=== PATIENT | male | born 1940 | race African-American/Black ===

== ENCOUNTER 2019-10-25 14:11 | Inpatient (IN) | payer MEDICARE ==
[~2019-10-25 14:11] MED LIST: Dextrose 50% Abboject 50 ML SYRINGE ONE
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
[2019-10-25 15:35] LABS: Lactic Acid 2.1 mmol/L (0.5-2.2)
[2019-10-25 15:39] LABS: Acetaminophen Less than 6.0 mcg/mL (10.0-30.0); Alcohol Less than 10 mg/dL (Less than 10); Salicylate Less than 8.0 mg/dL (15.0-30.0)
[2019-10-25] MEDS ORDERED: cefTRIAXone\\ROCEPHIN 1 GM VIAL ONE (16:20)
[2019-10-25 19:19] LABS: CKMB 119.1 ng/mL (0-6.6)
[2019-10-25] MEDS ORDERED: Ondansetron ODT 4 MG TAB SL PRN (19:39)
[2019-10-25] MEDS ORDERED: Ondansetron PF 4 MG/2 ML Vial IVP PRN (19:39)
[2019-10-25] MEDS ORDERED: Sodium Chloride 0.9% 1,000 ML IV SCH (19:39)
[2019-10-25] MEDS ORDERED: Acetaminophen 325 MG TAB PO PRN ×2 (19:39→19:56)
[2019-10-25 19:53] LABS: CKMB 115.9 ng/mL (0-6.6)
[2019-10-25] MEDS ORDERED: Ondansetron ODT 4 MG TAB PO PRN (19:56)
[2019-10-25] MEDS: Lactated Ringer's 1,000 ML IV SCH (20:02)
[2019-10-25 20:32] LABS: Free T4 (Free Thyroxine) 1.03 ng/dL (0.70-1.48)
[2019-10-26] MEDS: Lactated Ringer's 1,000 ML IV SCH ×4 (01:33→18:10)
[2019-10-26 05:14] LABS: Anion Gap 12 mmol/L (10-20); BUN (Urea Nitrogen) 42 mg/dL (8.4-25.7); Calc. Creatinine Clearance 31 mL/min (70-130); Calcium 7.9 mg/dL (7.8-10.44); Carbon Dioxide 22 mmol/L (23-31); Chloride 110 mmol/L (98-107); Estimated GFR-MDRD 58; Glucose 99 mg/dL (83-110); Potassium 4.2 mmol/L (3.5-5.1); Sodium 140 mmol/L (136-145)
[2019-10-26 05:15] LABS: CKMB 61.9 ng/mL (0-6.6); Critical Call CKMB RESULT DECREASING
[2019-10-26 05:20] LABS: #Lymphocytes 0.5 thou/uL (1.20-3.40); #Monocytes 1.2 thou/uL (0.11-0.59); #Neutrophils 10.5 thou/uL (1.40-6.50); %Basophils 0.1 % (0.0-1.0); %Eosinophils 0.1 % (0.0-10.0); %Lymphocytes 3.7 % (21.0-51.0); %Monocytes 9.8 % (0.0-10.0); %Neutrophils 86.3 % (42.0-75.0); Hemoglobin 10.4 g/dL (14.0-18.0); Mean Corpuscular HGB CONC 32.4 g/dL (32.0-36.0); Mean Corpuscular Hemoglobin 29.6 pg (27.0-31.0); Mean Corpuscular Volume 91.5 fL (78.0-98.0); Mean Platelet Volume 9.6 fL (7.4-10.4); Platelet Count 81 thou/uL (130-400); Platelet Morphology Comment Appears Decreased; RBC Distribution Width 12.2 % (11.5-14.5); White Blood Cell (WBC) Count 12.1 thou/uL (4.8-10.8)
[2019-10-26 05:28] LABS: Syphilis Antibody Nonreactive (Nonreactive); Syphilis Antibody Index 0.09 S/CO (<1.00 Non-Reactive)
[2019-10-26 05:29] LABS: HBCM Index 0.04 S/CO (0-0.79); HBSAB Concentration 2.26 mIU/mL; HBSAg Index 0.22 S/CO (0-0.99); Hep A IgM AB Non-Reactive (NonReactive); Hep A IgM S/CO 0.11 S/CO (0-0.79); Hep B Surf AB Non-Reactive (NonReactive); Hep B Surf Ag Non-Reactive S/CO (NonReactive); Hepatitis B Core IgM Abs Non-Reactive (NonReactive)
--- NOTE | 2019-10-26 05:37 | PDOC.FM ---
- Subjective Subjective: Patient doing well this morning. A&O x1. Denies any cp, sob, abd pain at this time. - Objective Vital Signs & Weight: Vital Signs (12 hours) Temp Pulse Resp BP BP Pulse Ox 10/26/19 04:00 98.4 F 84 20 150/84 H 97 10/25/19 23:59 99.4 F 94 18 150/70 H 95 10/25/19 19:35 99.4 F 91 16 145/74 H 96 Weight Weight 51.029 kg Result Diagrams: 10/26/19 04:24 10/26/19 04:24 Phys Exam - Physical Examination Constitutional: NAD HEENT: moist MMs, sclera anicteric Neck: supple, full ROM Respiratory: no wheezing, clear to auscultation bilateral Cardiovascular: RRR, no significant murmur Gastrointestinal: soft, non-tender slender abd Musculoskeletal: no edema, pulses present Neurological: non-focal, moves all 4 limbs Deviation from normal: A&O x1 Skin: normal turgor Deviation from normal: skin breakdown on scrotum Dx/Plan (1) Rhabdomyolysis Code(s): M62.82 - RHABDOMYOLYSIS Status: Acute (2) Elevated troponin Code(s): R79.89 - OTHER SPECIFIED ABNORMAL FINDINGS OF BLOOD CHEMISTRY Status : Acute (3) Hyperthyroidism Code(s): E05.90 - THYROTOXICOSIS, UNSP WITHOUT THYROTOXIC CRISIS OR STORM Status: Acute (4) Elevated AST (SGOT) Code(s): R74.0 - NONSPEC ELEV OF LEVELS OF TRANSAMNS & LACTIC ACID DEHYDRGNSE Status: Acute (5) Leukocytosis Code(s): D72.829 - ELEVATED WHITE BLOOD CELL COUNT, UNSPECIFIED Status: Acute (6) Asthma Code(s): J45.909 - UNSPECIFIED ASTHMA, UNCOMPLICATED Status: Acute (7) ALLEN (acute kidney injury) Code(s): N17.9 - ACUTE KIDNEY FAILURE, UNSPECIFIED Status: Acute - Plan Plan: Patient is a 79M with unknown medical hx that is admitted for rhabdomyolysis, ALLEN vs CKD, hypothermia, and social discord #Rhabdo -found down in [place], unknown time duration -CK 4642 > 9070 -CK-MB 87.2 > 61.9 -lactic 2.1 -Received 3L NS throughout the various ER stays today -will continue IVF hydration and trend CK/CK-MB to monitor improvement #ALLEN vs CKD -Creatinine 2.16 > 1.43 with fluid -uncertain of baseline -will continue to monitor with fluids #Elevated troponins -trop 0.096>0.189>0.17 -patient denies chest pain -likely due to rhabdo/being found down/demand -will continue to monitor on telemetry #Leukocytosis -WBC 20>12.1, likely reactive due to patient's recent time spent outside/rhabdo/ hypothermia -will continue to monitor #Elevated AST -no known drinking hx, though uncertain hx -RPR neg -Hepatitis panel and HIV pending #Elevated TSH -TSH 5.68 -no symptoms of hyperthyroidism -free T3 low at 1.54, free T4 nml -likely subclinical hypothyroidism #Hypothermia, resolved -temperature in ED 98.4F -will continue to monitor on telemetry #Social Discord/Possible dementia -patient A&O x1 -this has occurred one time previously 1 month ago -son states that it will be difficult for anyone from the family to come see patient in the hospital -family seems to be unaware of patient's medical hx, medications -UDS neg -Brain CT neg -CM consult, appreciate recs -24hr sitter -will continue to discuss patient with family, and will call [facility] in [place], [place] today for records #Lactic Acidosis, resolved -lactic 2.1 -gap closed today at 8 -fluids -continue to monitor #Deconditioning #Starvation Ketosis -elevated BHB -patient appears very slender; unsure what patient has eaten or where patient has stayed throughout the last several days since going missing -dietitian consult, appreciate recs -wound care consulted #Asthma -son states patient has reported asthma -will add duonebs prn and monitor respiratory status #Possible UTI -patient denies urinary symptoms -UA: + protein, blood, 2+ bacteria though squamous cells present so likely not clean catch -received 1g rocephin in ED -urine cx pending, will consider abx therpy if urine cx + DVT ppx: SCD for high fall risk Dispo: inpatient for IVF hydration for rhabdo, cm/sw consult for social discord , polytechnic registrar for deconditioning Code: Full
[2019-10-26 05:41] LABS: CK (CPK) 9070 U/L (30-200)
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
[2019-10-26] MEDS ORDERED: FLU VACC TS2019-20(65YR UP)/PF 180 MCG/0.5 ML SYRINGE IM ONE (21:00)
[2019-10-26] MEDS ORDERED: Prevnar 13-Val Conj/PF 0.5 ML SYRINGE IM ONE (21:00)
[2019-10-27] MEDS: Lactated Ringer's 1,000 ML IV SCH ×5 (00:59→22:55)
[2019-10-27 05:18] LABS: #Lymphocytes 0.8 thou/uL (1.20-3.40); %Basophils 0.4 % (0.0-1.0); %Eosinophils 0.4 % (0.0-10.0); %Lymphocytes 9.9 % (21.0-51.0); %Monocytes 12.3 % (0.0-10.0); %Neutrophils 76.9 % (42.0-75.0); Hemoglobin 9.9 g/dL (14.0-18.0); Mean Corpuscular HGB CONC 32.5 g/dL (32.0-36.0); Mean Corpuscular Hemoglobin 30.3 pg (27.0-31.0); Mean Corpuscular Volume 93.2 fL (78.0-98.0); Mean Platelet Volume 9.3 fL (7.4-10.4); Platelet Count 79 thou/uL (130-400); RBC Distribution Width 12.2 % (11.5-14.5); Red Blood Cell (RBC) Count 3.26 mill/uL (4.70-6.10); White Blood Cell (WBC) Count 7.8 thou/uL (4.8-10.8)
[2019-10-27 05:37] LABS: Anion Gap 6 mmol/L (10-20); BUN (Urea Nitrogen) 21 mg/dL (8.4-25.7); Calc. Creatinine Clearance 59 mL/min (70-130); Calcium 7.8 mg/dL (7.8-10.44); Carbon Dioxide 29 mmol/L (23-31); Chloride 109 mmol/L (98-107); Estimated GFR-MDRD Greater than 90; Glucose 112 mg/dL (83-110); Potassium 3.6 mmol/L (3.5-5.1); Sodium 140 mmol/L (136-145)
[2019-10-27 05:39] LABS: CKMB 20.7 ng/mL (0-6.6); Critical Call CKMB RESULT DECREASING
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
[2019-10-27 05:50] LABS: HIV (1/2) Antibody/Antigen Non-Reactive (NonReactive); HIV 1/2 INDEX 0.05 S/CO (<1.00)
[2019-10-27 05:54] LABS: CK (CPK) 6083 U/L (30-200)
[2019-10-27] MEDS ORDERED: hydrALAZINE 20 MG/ML VIAL SLOW IVP PRN (10:19)
[2019-10-27] MEDS ORDERED: Amlodipine 10 MG TAB PO SCH (10:20)
[2019-10-27 10:33] LABS: Iron 53 ug/dL (65-175); Iron Binding Capacity, Total 215 mcg/dL (261-462)
[2019-10-27 10:54] LABS: Ferritin 248.06 ng/mL (22-322)
--- NOTE | 2019-10-27 11:37 | PRG ---
DATE OF SERVICE: 10/27/2019 Mr. Keith is sitting in bed quietly, in no distress. He is still confused and somewhat disoriented and likely has dementia. We will do mini-mental status exam on him later today. He has also been found to be anemic and we have instituted some iron studies. Job ID: [id number]
[2019-10-28] MEDS: Lactated Ringer's 1,000 ML IV SCH ×4 (04:49→22:21)
[2019-10-28 07:14] LABS: #Eosinphils 0.1 thou/uL (0.0-0.7); #Lymphocytes 0.7 thou/uL (1.20-3.40); #Neutrophils 5.8 thou/uL (1.40-6.50); %Basophils 0.4 % (0.0-1.0); %Eosinophils 1.8 % (0.0-10.0); %Lymphocytes 8.5 % (21.0-51.0); %Neutrophils 76.3 % (42.0-75.0); Hemoglobin 10.8 g/dL (14.0-18.0); Mean Corpuscular Hemoglobin 31.6 pg (27.0-31.0); Mean Corpuscular Volume 92.8 fL (78.0-98.0); Mean Platelet Volume 8.2 fL (7.4-10.4); Platelet Count 94 thou/uL (130-400); RBC Distribution Width 11.9 % (11.5-14.5); Red Blood Cell (RBC) Count 3.44 mill/uL (4.70-6.10); White Blood Cell (WBC) Count 7.6 thou/uL (4.8-10.8)
[2019-10-28 07:21] LABS: Anion Gap 9 mmol/L (10-20); BUN (Urea Nitrogen) 11 mg/dL (8.4-25.7); CK (CPK) 3025 U/L (30-200); Calc. Creatinine Clearance 66 mL/min (70-130); Calcium 7.9 mg/dL (7.8-10.44); Carbon Dioxide 30 mmol/L (23-31); Chloride 105 mmol/L (98-107); Estimated GFR-MDRD Greater than 90; Glucose 95 mg/dL (83-110); Potassium 3.5 mmol/L (3.5-5.1); Sodium 140 mmol/L (136-145)
[2019-10-28 07:29] LABS: CKMB 7.8 ng/mL (0-6.6)
[2019-10-28] MEDS ORDERED: Lactated Ringer's 1,000 ML IV SCH (07:30)
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
[2019-10-28] MEDS: Amlodipine 5 MG TAB PO SCH (11:05)
--- NOTE | 2019-10-28 11:18 | PRG ---
DATE OF SERVICE: 10/28/2019 I have discussed the case and read the note of Dr. Stefania Esparza, and agree with her assessment and plan. Mr. Keith is resting in bed, in no distress. He is still having episodes of intermittent confusion and last night appeared to have some problem with delirium. We are still attempting to perform a mini mental status exam to document his probable dementia. His CK continues to normalize. His ALLEN has improved with the beginning creatinine of 2.16. It is now 0.76. We will continue with fluids and monitoring. Job ID: [id number]
--- NOTE | 2019-10-28 12:07 | PQF ---
ANTONIETA HO NIKKI, MD *r [id number] [facility]-265 [id number] CLINICAL DOCUMENTATION IMPROVEMENT CLARIFICATION FORM: ICD-10 Updated PLEASE DO AN ADDENDUM TO THE PROGRESS NOTE WITH ANY DOCUMENTATION UPDATES OR ADDITIONS AND CARRY THROUGH TO DC SUMMARY. THANK YOU. DATE: 10/28/19 ATTN: Dr. Esparza Please exercise your independent, professional judgment in responding to the clarification form. Clinical indicators are provided on the bottom of this form for your review Please check appropriate box(s): [x] SIRS due to Non-infectious process: [x] Rhabdomyolysis [ ] With organ dysfunction [ ] Without organ dysfunction [ ] Other diagnosis [ ] Unable to determine In addition, please specify: Present on Admission (POA): [ ] Yes [ ] No [ ] Unable to determine For continuity of documentation, please document condition throughout progress notes and discharge summary. Thank You. CLINICAL INDICATORS - SIGNS / SYMPTOMS / LABS / RESULTS AND LOCATION IN MR Heart Rate >90/min--> HR 101 per 10/25 VS Respiratory Rate >22/min--> 10/25 RR 24 per VS AMS--> 10/25 Isaias: "A&O x1" Leukocytosis >12k or <4k--> 10/26 wbc 12.1 per lab 10/26 Isaias:" lactic acidosis" labs: 10/26 bun 42, creat 1.43, GFR 58--> 10/27 bun 21, creat 0.82, GFR >90 CK 9070 per 10/26 lab RISK FACTORS / RESULTS AND LOCATION IN MR "Rhabdomyolysis, ALLEN" 10/25 Isaias TREATMENT / RESULTS AND LOCATION IN MR IV Fluids--> 1L NS 10/25 to LR at 175 10/25-10/28/19--> LR at 75 10/28/19 per labs Daily labs 10/26 to date per orders (This form is maintained as a part of the permanent medical record) 2014 [employer]. All Rights Reserved Courtney Stark RN, BSN, CCDS [email or web address]
[2019-10-28 13:28] VITALS: BMI 19.6
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
[2019-10-28 18:42] LABS: CKMB 6.1 ng/mL (0-6.6)
[2019-10-29] MEDS: Lactated Ringer's 1,000 ML IV SCH ×4 (02:33→21:47)
[2019-10-29 05:27] LABS: CKMB 5.9 ng/mL (0-6.6)
[2019-10-29 05:28] LABS: Anion Gap 7 mmol/L (10-20); BUN (Urea Nitrogen) 15 mg/dL (8.4-25.7); CK (CPK) 1941 U/L (30-200); Calc. Creatinine Clearance 61 mL/min (70-130); Calcium 8.4 mg/dL (7.8-10.44); Carbon Dioxide 33 mmol/L (23-31); Chloride 101 mmol/L (98-107); Estimated GFR-MDRD Greater than 90; Glucose 86 mg/dL (83-110); Potassium 3.9 mmol/L (3.5-5.1); Sodium 137 mmol/L (136-145)
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
[2019-10-29] MEDS: Amlodipine 5 MG TAB PO SCH (09:28)
--- NOTE | 2019-10-29 11:28 | PRG ---
DATE OF SERVICE: 10/29/2019 Not surprisingly, Mr. Keith's MMSE was consistent with [id number]-[id number] dementia. We are still awaiting placement and have consulted case management. In the event, clinically, Mr. Keith though confused, is otherwise stable. Job ID: [id number]
[2019-10-29 19:09] LABS: Folate,Hemolysate 309.7 ng/mL (Not Estab.); Hematocrit 29.4 % (37.5-51.0); RBC Folate Test Component 1053 ng/mL (>498)
[2019-10-30 05:09] LABS: Anion Gap 10 mmol/L (10-20); BUN (Urea Nitrogen) 13 mg/dL (8.4-25.7); CK (CPK) 983 U/L (30-200); Calc. Creatinine Clearance 63 mL/min (70-130); Calcium 8.5 mg/dL (7.8-10.44); Carbon Dioxide 28 mmol/L (23-31); Chloride 105 mmol/L (98-107); Estimated GFR-MDRD Greater than 90; Glucose 93 mg/dL (83-110); Potassium 4.1 mmol/L (3.5-5.1); Sodium 139 mmol/L (136-145)
[2019-10-30 05:12] LABS: CKMB 4.9 ng/mL (0-6.6)
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
[2019-10-30] MEDS: Lactated Ringer's 1,000 ML IV SCH (08:10)
[2019-10-30] MEDS ORDERED: Amlodipine 10 MG TAB PO SCH (09:00)
--- NOTE | 2019-10-30 11:23 | PRG ---
DATE OF SERVICE: 10/30/2019 I have examined Mr. Keith and discussed the case with Dr. Stefania Esparza. I agree with her assessment and plan. Job ID: [id number]
[2019-10-30 16:35] VITALS: BP 137/82; TEMP 98.4
--- NOTE | 2019-11-02 05:36 | PQF ---
[employer] Crystal Reports [employer] ANTONIETA Ewing ELI BLACK [id number] CLINICAL DOCUMENTATION CLARIFICATION FORM: POST DISCHARGE Addendum to original discharge summary date: ____ Late entry note date: __ DATE: 11/02/2019 ATTN:ELI BLACK Please exercise your independent, professional judgment in responding to the clarification form. Clinical indicators are provided on the bottom of this form for your review Please check appropriate box(s): AMI TYPE: [ ] Acute Coronary Syndrome (ACS) without Acute WV meaning Unstable Angina [ ] NSTEMI (WV type I) [ ] NSTEMI due to Demand Ischemia (AMI Type II) [ ] Demand Ischemia without WV [ ] STEMI (please also specify site and arterysee below) If STEMI, SITE:[ ] Anterior [ ] Apical [ ] Lateral [ ] Inferior [ ] Posterior [ ] Q Wave [ ] Septal [ ] Unable to Determine SPECIFIC ARTERY (Based on site) [ ] Left Main Coronary[ ] Diagonal [ ] Left Anterior Descending[ ] Oblique Marginal [ ] Right Coronary Artery[ ] Unable to Determine [ ] Left Circumflex ONSET OF INFARCTION: [ ] Onset Less than 4 weeks of admission [ ] Onset Greater than 4 weeks of admission [ ] Unable to determine DUE TO (if applicable): [ ] Stent occlusion [ ] In-Stent stenosis [ ] Occlusion of coronary bypass graft [ ] Complication of PCI [ ] Underlying CAD [ ] Other [ ] Other diagnosis [ ] Unable to determine In addition, please specify: Present on Admission (POA): [ ] Yes [ ] No [ ] Unable to determine CLINICAL INDICATORS - SIGNS / SYMPTOMS / LABS Elevated 0.189 on 10/25 & 0.123 on 10/28 - Documented in Laboratory Elevated CK MB 119.1 on 10/25 and 7.8 on 10/28 - Documented in Laboratory elevated troponin likely due to rhabdo/being found down/demand - Documented in H &P on 10/25 by Isaias Aguiar Patient has continued to decrease with fluids and recovery - Documented in Family Medicine PNs on 10/30 by Isaias Aguiar Patient continue to deny chest pain - Documented in Family Medicine PNs on by Isaias Aguiar RISKS: Rhabdomyolysis ALLEN HTN TREATMENTS: Will continue monitoring on telemetry - Documented in H&P on 10/25 by Isaias Aguiar (This form is maintained as a part of the permanent medical record) 2014 [employer]. All Rights Reserved Brea [email or web address] [not provided] MTDD
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
== END 2019-10-30 16:52 | disposition home or self-care (01) | DRG 683 ==
LOC: ERS 14:11 → 2NO 19:48
PROVIDERS: ADMIT Family Medicine; ATTEND Family Medicine
DX: N17.9 Acute kidney failure, unspecified (principal); M62.82 Rhabdomyolysis; E87.2 Acidosis; R65.10 Systemic inflammatory response syndrome (SIRS) of non-infectious origin without acute organ dysfunction; Z85.46 Personal history of malignant neoplasm of prostate; E05.90 Thyrotoxicosis, unspecified without thyrotoxic crisis or storm; R74.0 Nonspecific elevation of levels of transaminase and lactic acid dehydrogenase [LDH]; D72.829 Elevated white blood cell count, unspecified; J45.909 Unspecified asthma, uncomplicated; T68.XXXA Hypothermia, initial encounter; R53.81 Other malaise; F03.90 Unspecified dementia, unspecified severity, without behavioral disturbance, psychotic disturbance, mood disturbance, and anxiety; E88.89 Other specified metabolic disorders; D64.9 Anemia, unspecified
CPT/HCPCS: 36415; 36416; 80048; 80307; 82010; 82550; 82553; 82607; 82728; 82747; 83540; 83550; 83605; 84439; 84481; 84484; 85025; 86705; 86706; 86708; 86709; 86780; 87086; 87340; 87389; 87521; 96361; 96365; J0696